=== PATIENT | male | born 1985 | race African-American/Black ===

== ENCOUNTER 2022-08-09 10:17 | Outpatient (CLI) | payer OTHER, SELFPAY ==
--- NOTE | 2022-08-09 10:38 | ECG_ITS ---
Measurements Intervals [place] Rate: 75 P: 74 HI: 142 QRS: 21 QRSD: 108 T: 26 QT: 383 QTc: 429 Interpretive Statements SINUS RHYTHM BASELINE ARTIFACT PRESENT NO PREVIOUS ECG AVAILABLE FOR COMPARISON Electronically Signed On 08-09-2022 17:26:11 CDT by Yash Velazco M.D.
== END 2022-08-09 10:18 | disposition home or self-care (01) ==
PROVIDERS: Visit Provider Orthopaedic Surgery
DX: I10 Essential (primary) hypertension (principal); Z01.818 Encounter for other preprocedural examination
CPT/HCPCS: 93005

== ENCOUNTER 2022-08-16 03:20 | Day surgery (SDC) | payer OTHER, SELFPAY ==
[2022-08-07 10:40] VITALS: BMI 34.2
--- NOTE | 2022-08-07 10:51 | PC.NURSE ---
Report to the Outpatient Waiting Room, entrance under the green pavilion located off [facility], at time 6:00 on date 08/16/22. OR Time: 7:30. Time changes happen often and if your time is changed the preop area will call you the afternoon before. - You and your visitor will be asked to self-screen and do not enter if you have any COVID symptoms. - Only one visitor and NO children visitors are allowed at this time. - The patient visitor is requested to leave or wait in car when not with patient due to restrictions. - A mask is required within the hospital. Patients may have clear liquids (water, carbonated beverages, clear teas, apple juice) until 3 hours prior to surgery (4:30) with a maximum of 20 ounces. - No food from midnight until time of surgery Take the following medications with a SIP of water the morning of surgery: NONE Medications to discontinue per physician: N/A Date to take last dose: N/A Please no make-up, nail hebrew, hairspray, perfume, deodorant, or body powder the day of surgery. No jewelry (including any body piercings) or valuables the day of surgery, leave them at home. Please take a shower or bath the night before, or the morning of, surgery with an antibacterial soap. Wear comfortable, loose fitting clothing. - Jewelry must be removed prior to entering the operating room. Rings and piercings that are not removed may be cut off. - The hospital will not accept responsibility for valuables. - Please leave all valuables, including medications, at home the day of surgery. If you are going home after surgery, a licensed driver service technician must drive you home. - NO public transportation without another adult. - We recommend that an adult stay with you for 24 hours following discharge. - We also recommend that you do not drive, make important decision, drink alcoholic beverages, or take any drugs that were not prescribed by your health care provider for at least 24 hours after your discharge time. Follow any additional instructions given to you from your surgeon. If you or anyone in your household have experienced Covid symptoms in the past week, please notify your surgeon or the nurse liaison at the phone number below for possible testing. Telephone instructions given to PT - BRUNO SALAZAR and asked if any additional questions and then verbalized understanding. Patient advised to call surgeon office or pre surgery nurse liaison [phone] if any additional questions.
[2022-08-16] VITALS (10 sets, daily range): BP systolic 135–158; BP diastolic 70–103; PULSE 69–89; RESP 16–20; TEMP 36.6–36.8; O2SAT 99–100
[2022-08-16] MEDS: ACETAMINOPHEN 500 MG TABLET 1000 MG PO (06:48)
[2022-08-16] MEDS: LACTATED RINGERS 1,000 ML 30 ML IV CONT (06:54)
[2022-08-16] MEDS: KETOROLAC 15 MG/ML VIAL (*BKC) IV PUSH (06:55)
--- NOTE | 2022-08-16 07:01 | SUR.PREOP ---
pt states knows how to use crutches and has crutches at home.
--- NOTE | 2022-08-16 07:04 | WPDANESEPPF ---
Anes - Initial Pre Proc Eval Procedure: Operation Date: 08/16/22 07:30 Proposed Procedures p Left Knee Arthroscopy, Debride Meniscus, Synovectomy, Chondroplasty, Proceed As Indicated - Srinath Albert MD Date/Time: 08/16/22 07:04 Surgeon: Srinath Albert MD Pre Op Diagnosis: left knee pain, meniscus tear,chonromylacia,synovi Patient Data Age: 37 Gender: M Height: 1.89 m Weight: 124.3 kg Last Vital Signs Temp 36.6 C 08/16/22 06:20 Pulse 76 08/16/22 06:20 Resp 16 08/16/22 06:20 BP 148/98 H 08/16/22 06:20 Pulse Ox 99 08/16/22 06:20 O2 Del Method Room Air 08/16/22 06:20 Allergies Allergy/AdvReac Type Severity Reaction Status Date / Time No Known Allergies Allergy Verified 08/16/22 06:37 Home Medications Medication Instructions Recorded Confirmed Type lisinopril 10 mg tablet 10 mg PO DAILY 08/07/22 08/16/22 History Patient hx anesthesia problems: none Family hx anesthesia problems: none Results Review: All pre-operative results and documents have been reviewed as part of the pre-operative evaluation. [facility] Past Medical History Medical History Acute medial meniscus tear of left knee Chondromalacia patellae, left knee HTN (hypertension) PE (pulmonary thromboembolism) after ankle surgery in 2018 Surgical History Surgical History History of ankle surgery Achilles surgery 2018 Family History Family History Other Cerebrovascular accident HLD (hyperlipidemia) Hypertension Malignant neoplasm of prostate Social History Social History Smoking status: Never smoker Tobacco type: cigars Additional smoking assessment comments: ON OCCASION Alcohol intake: current Drinks per week: 2 Substance use: never Substance use type: does not use Living arrangements: with family Occupation/Education: occupation Gender identity (if verbalized by the patient): Male Spiritual care concerns: No Anes - Eval Final PreProcedure Day of Procedure 08/16/22 07:04 Patient weight: obese Heart: regular rate and rhythm Lungs: clear to auscultation Airway: Mallampati scale class III Last oral intake: >/= 8 hours ASA classification: III Emergent: no Anesthetic plan: proceed Anesthesia type and monitoring: general LMA and standard monitoring Results Review: All pre-operative results and documents have been reviewed as part of the pre-operative evaluation. Informed Consent: The patient's anesthetic plan and its attendant risks and benefits were discussed with the patient/family/POA. Questions were solicited and answers provided to the satisfaction of the patient/family/POA.
--- NOTE | 2022-08-16 07:05 | WPDHPUPDATE1 ---
History and Physical Update Update Date/Time: 08/16/22 07:05 History and Physical has been reviewed, including an updated exam of the patient. There are NO changes in the patient's condition. Risks, benefits, and alternatives have been discussed and questions answered. Patient agrees to proceed with procedure.
[2022-08-16] MEDS: ceFAZolin 3 GM/D5W 100 ML 100 ML IVPB (07:19)
[2022-08-16] MEDS: BUPIVACAINE/EPINEPHRINE 0.25% 50 ML VIAL 30 ML INFILTRATE (07:41)
[2022-08-16] MEDS: BUPIVACAINE HCL 0.25% PF 30 ML VIAL 20 ML INFILTRATE (08:56)
--- NOTE | 2022-08-16 09:31 | P.OP_ITS ---
Procedure Note - Detailed Date of Procedure 08/16/22 Pre-op Diagnosis left knee pain, meniscus tear,chonromylacia,synovi Post-op Diagnosis Same Procedure Performed Left knee arthroscopy with partial medial meniscectomy, chondroplasty pat ellofemoral and medial compartment, synovectomy anterior fat pad, medial and lateral plica, peripatellar synovium, medial compartment Surgeon Srinath Albert MD Anesthesia General Indications 37-year-old with knee pain unrelieved by physical therapy, exercises, activity modification and anti-inflammatories. MRI demonstrates medial meniscus tear. He also has degenerative changes. He has failed conservative treatment and presents for operative treatment. Findings Complex tear posterior horn and body medial meniscus. Lateral meniscus intact. ACL with evidence of previous injury but intact. PCL intact. Grade 4 chondromalacia of the medial femoral condyle with large area of grade 3 chondromalacia involving most of the medial femoral condyle. Grade 4 chondromalacia of the femoral trochlea and the patella. Description of Procedure Informed consent given by patient. Operative extremity marked in preoperative holding area. Patient received intravenous antibiotics. Patient brought to operating room and underwent general anesthetic by anesthesia team. Positioned supine on operating room table. Left leg placed into a posterior thigh leg grover. Foot of the table dropped to 90? and right leg padded out of the field. Time-out performed confirming patient, site of surgery and plan. Left knee prepped and draped in usual sterile surgical fashion using ChloraPrep skin solution. Standard arthroscopic portals made by using a 11 blade knife for the anterior lateral portal 1st. Capsule penetrated bluntly. Camera and inflow started. The below operative findings noted. Intra-articular visualization used to position the anterior medial portal using 22 gauge spinal needle. A 11 blade knife used for the skin and blunt penetration of the capsule. 4.7 millimeter arthroscopic shaver introduced and partial medial meniscectomy of the loose and torn portion performed. Edge of meniscus completed with arthroscopic Wand. Arthroscopic Wand used to perform chondroplasty of the patellofemoral articulation and the medial femoral condyle. Shaver reintroduced and a synovectomy performed of the anterior fat pad and extensive synovium as well as medial and lateral plica. Bleeding points coagulated with Wand. Knee inspected, no loose pieces noted. 1 liter of irrigant infused and suction out. Arthroscopic cannulas removed. Skin closed with 4 nylon interrupted suture. Local anesthetic with 0.25% Marcaine. Sterile dressing applied. Patient awoken from anesthesia, extubated and taken to recovery room in stable condition. All sponge needle and instrument counts correct at the end of the case. Estimated Blood Loss 5 Tourniquet Time 0 Drains No Packing No Pathology None sent Complications None Condition Stable Disposition PACU
[2022-08-16] MEDS: fentaNYL CITRATE INJ (*CRX) 100 MCG/2 ML VIAL 25 MCG IV PUSH ×2 (10:01→10:07)
[2022-08-16] MEDS: oxyCODONE HCL (*CRX) 5 MG TAB IR PO (10:46)
== END 2022-08-16 11:32 | disposition home or self-care (01) ==
PROVIDERS: Visit Provider Orthopaedic Surgery
PROC: (CPT 29870; principal; 2022-08-16 07:30)
DX: S83.232A Complex tear of medial meniscus, current injury, left knee, initial encounter (principal); X50.0XXA Overexertion from strenuous movement or load, initial encounter; M22.42 Chondromalacia patellae, left knee; I10 Essential (primary) hypertension; Z86.711 Personal history of pulmonary embolism; E66.9 Obesity, unspecified; Z68.34 Body mass index [BMI] 34.0-34.9, adult
CPT/HCPCS: 29881; 29876; A9270; J0690; J1100; J1885; J2250; J2405; J2704; J3010; J7120